=== PATIENT | female | born 1980 | race African-American/Black ===

== ENCOUNTER 2021-03-03 12:08 | Emergency (ER) | payer OTHER ==
[~2021-03-03] VITALS: Ht 165.1 cm; Wt 81.7 kg
[2021-03-03 12:10] VITALS: BP 126/84
[2021-03-03 12:44] LABS: URINE BILIRUBIN NEGATIVE (Negative); URINE BLOOD NEGATIVE (Negative); URINE CLARITY CLEAR; URINE COLOR YELLOW; URINE GLUCOSE-RANDOM* NEGATIVE (Negative); URINE KETONES NEGATIVE (Negative); URINE LEUKOCYTES-REFLEX NEGATIVE (Negative); URINE NITRITE-REFLEX NEGATIVE (Negative); URINE PROTEIN (DIPSTICK) NEGATIVE (Negative); URINE UROBILINOGEN 0.2 E.U./dl (0.2-1.0)
[2021-03-03] MEDS ORDERED: FLUOCINONIDE15 G1 TOP (13:04)
== END 2021-03-03 13:07 | disposition home or self-care (01) ==
LOC: ER 12:08
PROVIDERS: Student in an Organized Health Care Education/Training Program
DX: L30.9 Dermatitis, unspecified (principal)